=== PATIENT | female | born 1975 | race Caucasian/White ===

== ENCOUNTER → 2019-05-17 | Outpatient (CLI) | payer OTHER ==
--- NOTE | 2019-05-18 14:21 | REP ---
RIGHT ANKLE COMPLETE: 05/17/2019. CLINICAL HISTORY: Right ankle injury posteriorly. FINDINGS: Four views are provided, no prior study. Plantar calcaneal spur and a small calcification or ossification of the distal Achilles without swelling. Subtalar joints intact. Talonavicular and calcaneocuboid joints are normal. The mortise joint is symmetric and preserved. There is no visible or displaced fracture of the distal tibia or fibula. There is some soft tissue swelling about the ankle, but no acute fracture or avulsion. IMPRESSION: 1. Swelling about the ankle without fracture, avulsion, disruption of the mortise joint or other acute finding. 2. Achilles insertional calcification and plantar calcaneal spur. Electronically Signed by Benji Fountain MD 05/20/2019 08:03 A
== END ==
LOC: M WUC 18:55
PROVIDERS: ATTEND Physician Assistant
DX: M25.471 Effusion, right ankle (principal); M77.31 Calcaneal spur, right foot; M25.571 Pain in right ankle and joints of right foot

== ENCOUNTER 2022-10-01 19:41 | Emergency (ER) | payer OTHER ==
[~2022-10-01] VITALS: Ht 149.9 cm; Wt 75.0 kg
[2022-10-01 21:24] LABS: BASO # 0.1 10^3/uL (0.0-0.2); BASO % 0.9 % (0.0-1.0); EOS # 0.2 10^3/uL (0.0-0.5); EOS % 1.9 % (0.0-3.0); HEMATOCRIT 49.2 % (36.0-47.0); HEMOGLOBIN 16.2 g/dl (12.0-15.5); LYMPH # 3.5 10^3/uL (1.5-5.0); LYMPH % 32.6 % (24.0-44.0); MEAN CORPUSCULAR HEMOGLOBIN 29.6 pg (27.0-33.0); MEAN CORPUSCULAR HGB CONC 32.9 g/dl (32.0-36.5); MEAN CORPUSCULAR VOLUME 89.8 fl (80.0-96.0); MONO # 0.5 10^3/uL (0.0-0.8); MONO % 4.9 % (2.0-8.0); NEUTROPHILS # 6.3 10^3/uL (1.5-8.5); PLATELET COUNT, AUTOMATED 395 10^3/uL (150-450); RED BLOOD COUNT 5.48 10^6/uL (4.00-5.40); WHITE BLOOD COUNT 10.7 10^3/uL (4.0-10.0)
[2022-10-01 21:47] LABS: BLOOD UREA NITROGEN 8 MG/DL (9-23); CALCIUM LEVEL 9.6 MG/DL (8.5-10.1); CARBON DIOXIDE LEVEL 25 MMOL/L (20-31); CHLORIDE LEVEL 102 MMOL/L (98-107); CREATININE FOR GFR 0.52 MG/DL (0.55-1.30); GLOMERULAR FILTRATION RATE > 60.0 (>58); GLUCOSE, FASTING 289 MG/DL (60-100); POTASSIUM SERUM 4.2 MMOL/L (3.5-5.1); SODIUM LEVEL 137 MMOL/L (136-145)
[2022-10-02 00:50] VITALS: BP 131/83
== END 2022-10-02 01:44 | disposition left against medical advice (07) ==
LOC: M ED 19:41
DX: Z53.21 Procedure and treatment not carried out due to patient leaving prior to being seen by health care provider (principal)

== ENCOUNTER 2022-10-08 20:31 | Inpatient (IN) | payer OTHER ==
[~2022-10-08] VITALS: Ht 149.9 cm; Wt 75.5 kg
[2022-10-08] MEDS ORDERED: FAMOTIDINE 20MG/2ML VIAL IVP ONE (20:50)
[2022-10-08] MEDS ORDERED: ACETAMINOPHEN TAB 650MG DOSE (2X325MG) PO ONE (21:05)
[2022-10-08 21:23] LABS: BASO # 0.1 10^3/uL (0.0-0.2); BASO % 0.7 % (0.0-1.0); EOS # 0.1 10^3/uL (0.0-0.5); EOS % 0.6 % (0.0-3.0); HEMATOCRIT 41.9 % (36.0-47.0); HEMOGLOBIN 14.1 g/dl (12.0-15.5); LYMPH # 3.1 10^3/uL (1.5-5.0); LYMPH % 19.7 % (24.0-44.0); MEAN CORPUSCULAR HEMOGLOBIN 29.7 pg (27.0-33.0); MEAN CORPUSCULAR HGB CONC 33.7 g/dl (32.0-36.5); MEAN CORPUSCULAR VOLUME 88.2 fl (80.0-96.0); MONO # 0.7 10^3/uL (0.0-0.8); MONO % 4.3 % (2.0-8.0); NEUTROPHILS # 11.5 10^3/uL (1.5-8.5); NEUTROPHILS % 73.2 % (36.0-66.0); PLATELET COUNT, AUTOMATED 541 10^3/uL (150-450); RED BLOOD COUNT 4.75 10^6/uL (4.00-5.40); WHITE BLOOD COUNT 15.7 10^3/uL (4.0-10.0)
[2022-10-08] MEDS ORDERED: DOXY100C3 PO (21:28)
[2022-10-08] MEDS ORDERED: METF-881 PO (21:28)
[2022-10-08] MEDS ORDERED: HYDR-3713 PO (21:28)
[2022-10-08 21:40] LABS: CK-MB VALUE MASS < 1.0 NG/ML (<3.6)
[2022-10-08 21:41] LABS: ALBUMIN 3.2 G/DL (3.2-5.2); ALKALINE PHOSPHATASE 157 U/L (46-116); ALT/SGPT 34 U/L (7.0-40); AST/SGOT 32 U/L (<34); BILIRUBIN,DIRECT 0.2 MG/DL (<0.4); BILIRUBIN,TOTAL 0.6 MG/DL (0.3-1.2); BLOOD UREA NITROGEN 17 MG/DL (9-23); CALCIUM LEVEL 9.2 MG/DL (8.5-10.1); CARBON DIOXIDE LEVEL 15 MMOL/L (20-31); CHLORIDE LEVEL 100 MMOL/L (98-107); CPK CREATINE PHOSPHOKINASE 30 U/L (34-145); GLOMERULAR FILTRATION RATE > 60.0 (>58); GLUCOSE, FASTING 330 MG/DL (60-100); MB/CK RELATIVE INDEX 3.33 (< OR =4); POTASSIUM SERUM 3.4 MMOL/L (3.5-5.1); SODIUM LEVEL 135 MMOL/L (136-145); TOTAL PROTEIN 6.7 G/DL (5.7-8.2)
[2022-10-08] MEDS ORDERED: LORazepam 0.5 MG TAB PO ONE (22:05)
[2022-10-08 22:24] LABS: VENOUS BASE EXCESS -9.5 (-2.0-2.0); VENOUS HCO3 16.3 MEQ/L (23.0-27.0); VENOUS O2 SATURATION 79.5 % (60.0-80.0); VENOUS PARTIAL PRESSURE CO2 35.7 mmHg (38.0-50.0); VENOUS PARTIAL PRESSURE O2 48.7 mmHg (30.0-50.0); VENOUS PH 7.278 UNITS (7.330-7.430); VENOUS STANDARD HCO3 16.6 MEQ/L; VENOUS TOTAL CO2 17.4 MEQ/L (24.0-28.0)
[2022-10-08 22:57] LABS: CK-MB VALUE MASS < 1.0 NG/ML (<3.6)
[2022-10-08 22:59] LABS: CPK CREATINE PHOSPHOKINASE 28 U/L (34-145); MB/CK RELATIVE INDEX 3.57 (< OR =4)
[2022-10-08] MEDS ORDERED: PIPERACILLIN/TAZOBACTAM SOD 4.5 GM in D5W MINI-BAG PLUS 50 ML IV ONE (23:35)
[2022-10-08] MEDS ORDERED: NS 2,250 ML in IV 1 EA IV ONE (23:35)
[2022-10-09] VITALS (8 sets, daily range): BP systolic 109–126; BP diastolic 63–98
[2022-10-09] MEDS ORDERED: DOXY100T2 PO (00:19)
[2022-10-09] MEDS ORDERED: HYDR-4571 PO (00:19)
[2022-10-09] MEDS ORDERED: METF-838 PO (00:19)
[2022-10-09] MEDS ORDERED: ALEV220T22 PO (00:20)
[2022-10-09] MEDS ORDERED: HOME MED LIST COMPLETE! XX SCH (00:30)
[2022-10-09 00:48] LABS: RSV AMPLIFICATION NEGATIVE (NEGATIVE)
[2022-10-09 01:36] LABS: BLOOD UREA NITROGEN 16 MG/DL (9-23); CALCIUM LEVEL 8.2 MG/DL (8.5-10.1); CARBON DIOXIDE LEVEL 18 MMOL/L (20-31); CHLORIDE LEVEL 103 MMOL/L (98-107); CREATININE FOR GFR 0.54 MG/DL (0.55-1.30); GLOMERULAR FILTRATION RATE > 60.0 (>58); GLUCOSE, FASTING 397 MG/DL (60-100); POTASSIUM SERUM 4.5 MMOL/L (3.5-5.1); SODIUM LEVEL 135 MMOL/L (136-145)
[2022-10-09] MEDS ORDERED: HumuLIN R (REGULAR) INSULIN (NovoLIN R) **100U/ML** PER UNIT IV ONE (01:40)
[2022-10-09] MEDS ORDERED: VANCOMYCIN HCL IV SCH (02:10)
[2022-10-09] MEDS ORDERED: INSULIN REGULAR IN 0.9 % NACL 100 UNIT in IV 1 EA IV SCH ×2 (02:10)
[2022-10-09] MEDS ORDERED: MATE ADAPTER IV SCH (02:10)
[2022-10-09] MEDS ORDERED: NS IV SCH (02:10)
[2022-10-09] MEDS ORDERED: VANCOMYCIN HCL 750 MG, VIAL MATE ADAPTER 1 EACH in D5W 250 ML IV ONE ×2 (03:00→04:00)
[2022-10-09] MEDS: NS 1,000 ML IV SCH ×2 (03:20→11:01)
[2022-10-09] MEDS: INSULIN IV RATE CHANGE DOCUMENTATION ML/HR XX SCH ×2 (04:21→05:59)
[2022-10-09 05:38] LABS: BLOOD UREA NITROGEN 12 MG/DL (9-23); CALCIUM LEVEL 8.1 MG/DL (8.5-10.1); CARBON DIOXIDE LEVEL 18 MMOL/L (20-31); CHLORIDE LEVEL 108 MMOL/L (98-107); GLOMERULAR FILTRATION RATE > 60.0 (>58); GLUCOSE, FASTING 221 MG/DL (60-100); PHOSPHORUS LEVEL 2.4 MG/DL (2.5-4.9); POTASSIUM SERUM 4.1 MMOL/L (3.5-5.1); SODIUM LEVEL 139 MMOL/L (136-145)
[2022-10-09] MEDS: PIPERACILLIN/TAZOBACTAM SOD 3.375 GM in D5W MINI-BAG PLUS 50 ML IV SCH ×4 (05:54→23:31)
[2022-10-09] MEDS ORDERED: GLUCOSE 4GM CHEW TABLET PO PRN (06:15)
[2022-10-09] MEDS ORDERED: GLUCAGON INJ 1MG VIAL SC PRN (06:15)
[2022-10-09] MEDS ORDERED: LEVEMIR (INSULIN DETEMIR) 1 UNITS/0.01ML SC SCH (06:15)
[2022-10-09] MEDS ORDERED: DEXTROSE 50% 50ML SYRINGE IV PRN (06:15)
[2022-10-09] MEDS ORDERED: NS 500 ML IV ONE (06:35)
[2022-10-09 07:44] LABS: LIPASE 29 U/L (12-53)
[2022-10-09 07:46] LABS: AMYLASE 25 U/L (30-118); BILIRUBIN,DIRECT 0.2 MG/DL (<0.4)
[2022-10-09 07:48] LABS: ALBUMIN 2.7 G/DL (3.2-5.2); ALKALINE PHOSPHATASE 130 U/L (46-116); ALT/SGPT 31 U/L (7.0-40); AST/SGOT 26 U/L (<34); BILIRUBIN,TOTAL 0.5 MG/DL (0.3-1.2); TOTAL PROTEIN 5.8 G/DL (5.7-8.2)
[2022-10-09] MEDS: INSULIN LISPRO (NovoLOG) PER UNIT SC SCH ×3 (08:26→18:18)
[2022-10-09] MEDS: diphenhydrAMINE 25MG CAP PO SCH ×2 (09:33→21:24)
[2022-10-09] MEDS: FAMOTIDINE 20MG/2ML VIAL IVP SCH ×2 (09:34→21:24)
[2022-10-09] MEDS: ENOXAPARIN 40MG/0.4ML SYRINGE (J1650 PER 10MG) SC SCH (09:34)
[2022-10-09 10:46] LABS: BLOOD UREA NITROGEN 11 MG/DL (9-23); CALCIUM LEVEL 8.4 MG/DL (8.5-10.1); CARBON DIOXIDE LEVEL 20 MMOL/L (20-31); CHLORIDE LEVEL 108 MMOL/L (98-107); CREATININE FOR GFR 0.49 MG/DL (0.55-1.30); GLOMERULAR FILTRATION RATE > 60.0 (>58); GLUCOSE, FASTING 357 MG/DL (60-100); PHOSPHORUS LEVEL 2.3 MG/DL (2.5-4.9); POTASSIUM SERUM 4.5 MMOL/L (3.5-5.1); SODIUM LEVEL 138 MMOL/L (136-145)
[2022-10-09] MEDS: VANCOMYCIN HCL 1,000 MG, VIAL MATE ADAPTER 1 EACH in D5W 250 ML IV SCH ×2 (11:01→18:46)
[2022-10-09 14:07] LABS: BASO % 0.1 % (0.0-1.0); HEMATOCRIT 35.7 % (36.0-47.0); LYMPH # 2.4 10^3/uL (1.5-5.0); MEAN CORPUSCULAR HGB CONC 33.3 g/dl (32.0-36.5); MEAN CORPUSCULAR VOLUME 89.9 fl (80.0-96.0); MONO # 0.8 10^3/uL (0.0-0.8); MONO % 4.1 % (2.0-8.0); NEUTROPHILS # 15.3 10^3/uL (1.5-8.5); NEUTROPHILS % 81.9 % (36.0-66.0); RED BLOOD COUNT 3.97 10^6/uL (4.00-5.40); WHITE BLOOD COUNT 18.7 10^3/uL (4.0-10.0)
[2022-10-09 14:15] LABS: HEMOGLOBIN 11.9 g/dl (12.0-15.5)
[2022-10-09 14:16] LABS: PLATELET COUNT, AUTOMATED 412 10^3/uL (150-450)
[2022-10-09 14:24] LABS: ERYTHROCYTE SEDIMENTATION RATE 54 mm/hr (0-20)
[2022-10-09 15:35] LABS: HEMOGLOBIN A1c 12.4 % (4.0-6.0)
[2022-10-09] MEDS ORDERED: INSULIN LISPRO (NovoLOG) PER UNIT SC SCH (21:00)
[2022-10-10] MEDS: VANCOMYCIN HCL 1,000 MG, VIAL MATE ADAPTER 1 EACH in D5W 250 ML IV SCH (03:45)
[2022-10-10 03:47] VITALS: BP 116/73
[2022-10-10] MEDS: PIPERACILLIN/TAZOBACTAM SOD 3.375 GM in D5W MINI-BAG PLUS 50 ML IV SCH ×2 (06:32→12:28)
[2022-10-10 08:00] VITALS: BP 126/76
[2022-10-10] MEDS ORDERED: LEVEMIR (INSULIN DETEMIR) 1 UNITS/0.01ML SC SCH (09:00)
[2022-10-10] MEDS: INSULIN LISPRO (NovoLOG) PER UNIT SC SCH ×2 (09:07→13:34)
[2022-10-10] MEDS: ENOXAPARIN 40MG/0.4ML SYRINGE (J1650 PER 10MG) SC SCH (09:08)
[2022-10-10] MEDS ORDERED: CEPH500C PO (09:55)
[2022-10-10] MEDS ORDERED: BLOOKIT21 XX (09:55)
[2022-10-10] MEDS ORDERED: LEVE1INJ5 SC (09:55)
[2022-10-10] MEDS ORDERED: LANC30MI XX (09:55)
[2022-10-10] MEDS ORDERED: GLUC1TES2 XX (09:55)
[2022-10-10] MEDS ORDERED: ALCOPAD25 TOP (09:55)
[2022-10-10] MEDS ORDERED: INSU100I16 SQ (09:55)
[2022-10-10] MEDS ORDERED: PEN1MIS22 SC (09:55)
[2022-10-10 10:11] LABS: BASO # 0.1 10^3/uL (0.0-0.2); BASO % 0.7 % (0.0-1.0); EOS # 0.3 10^3/uL (0.0-0.5); EOS % 2.1 % (0.0-3.0); HEMATOCRIT 36.7 % (36.0-47.0); LYMPH # 3.6 10^3/uL (1.5-5.0); LYMPH % 27.7 % (24.0-44.0); MEAN CORPUSCULAR HEMOGLOBIN 29.9 pg (27.0-33.0); MEAN CORPUSCULAR HGB CONC 32.7 g/dl (32.0-36.5); MEAN CORPUSCULAR VOLUME 91.3 fl (80.0-96.0); MONO # 0.7 10^3/uL (0.0-0.8); MONO % 5.5 % (2.0-8.0); NEUTROPHILS # 8.2 10^3/uL (1.5-8.5); NEUTROPHILS % 63.1 % (36.0-66.0); PLATELET COUNT, AUTOMATED 388 10^3/uL (150-450); RED BLOOD COUNT 4.02 10^6/uL (4.00-5.40)
[2022-10-10 10:20] LABS: ERYTHROCYTE SEDIMENTATION RATE 33 mm/hr (0-20)
[2022-10-10 10:35] LABS: MAGNESIUM LEVEL 1.7 MG/DL (1.8-2.4)
[2022-10-10 10:39] LABS: ALBUMIN 2.7 G/DL (3.2-5.2); ALKALINE PHOSPHATASE 109 U/L (46-116); ALT/SGPT 28 U/L (7.0-40); AST/SGOT 27 U/L (<34); BILIRUBIN,TOTAL 0.6 MG/DL (0.3-1.2); BLOOD UREA NITROGEN 18 MG/DL (9-23); CALCIUM LEVEL 8.8 MG/DL (8.5-10.1); CARBON DIOXIDE LEVEL 22 MMOL/L (20-31); CHLORIDE LEVEL 108 MMOL/L (98-107); CREATININE FOR GFR 0.95 MG/DL (0.55-1.30); GLOMERULAR FILTRATION RATE > 60.0 (>58); GLUCOSE, FASTING 188 MG/DL (60-100); POTASSIUM SERUM 3.9 MMOL/L (3.5-5.1); SODIUM LEVEL 141 MMOL/L (136-145); TOTAL PROTEIN 5.5 G/DL (5.7-8.2)
[2022-10-10] MEDS ORDERED: MAGNESIUM OXIDE 400MG TAB (MAG-OX) PO ONE (12:00)
[2022-10-10 14:00] VITALS: BP 131/79
== END 2022-10-10 17:25 | disposition home or self-care (01) | DRG 720 ==
LOC: EDBD 20:31 → M ED 20:31 → EDUNIT# 20:31 → M ED INP 10-09 02:09 → ENRESERV 10-09 03:01 → M ICU 10-09 04:15 → M PED 10-10 05:25
PROVIDERS: ADMIT Internal Medicine; ATTEND Internal Medicine
DX: A41.9 Sepsis, unspecified organism (principal); E11.10 Type 2 diabetes mellitus with ketoacidosis without coma; E87.20 Acidosis, unspecified; L02.91 Cutaneous abscess, unspecified

== ENCOUNTER 2022-10-20 15:19 | Emergency (ER) | payer OTHER ==
[~2022-10-20] VITALS: Ht 149.9 cm; Wt 79.4 kg
[~2022-10-20 15:19] MED LIST: ALCOPAD25 TOP; ALEV220T22 PO; BLOOKIT21 XX; CEPH500C PO; DOXY100C3 PO; DOXY100T2 PO; GLUC1TES2 XX; HYDR-3713 PO; HYDR-4571 PO; INSU100I16 SQ; LANC30MI XX; LEVE1INJ5 SC; METF-838 PO; METF-881 PO; PEN1MIS22 SC
[2022-10-20 22:14] LABS: BASO # 0.1 10^3/uL (0.0-0.2); BASO % 0.9 % (0.0-1.0); EOS # 0.4 10^3/uL (0.0-0.5); EOS % 3.5 % (0.0-3.0); HEMATOCRIT 37.5 % (36.0-47.0); HEMOGLOBIN 12.2 g/dl (12.0-15.5); LYMPH # 3.3 10^3/uL (1.5-5.0); LYMPH % 32.8 % (24.0-44.0); MEAN CORPUSCULAR HEMOGLOBIN 29.5 pg (27.0-33.0); MEAN CORPUSCULAR HGB CONC 32.5 g/dl (32.0-36.5); MEAN CORPUSCULAR VOLUME 90.8 fl (80.0-96.0); MONO # 0.6 10^3/uL (0.0-0.8); MONO % 6.2 % (2.0-8.0); NEUTROPHILS # 5.6 10^3/uL (1.5-8.5); NEUTROPHILS % 56.3 % (36.0-66.0); PLATELET COUNT, AUTOMATED 449 10^3/uL (150-450); RED BLOOD COUNT 4.13 10^6/uL (4.00-5.40)
[2022-10-20 22:28] LABS: INR 0.98; PROTHROMBIN TIME 13.2 SECONDS (12.5-14.5)
[2022-10-20] MEDS ORDERED: NORCO, ANEXSIA 5/325MG TABLET (HYDROcodone/ACETAMINOPHEN) PO ONE (22:50)
[2022-10-20] MEDS ORDERED: HYDR-3713 PO (22:54)
[2022-10-20 23:07] VITALS: BP 132/78
== END 2022-10-20 23:10 | disposition home or self-care (01) ==
LOC: M ED 21:50
DX: S70.12XA Contusion of left thigh, initial encounter (principal); X58.XXXA Exposure to other specified factors, initial encounter; E11.9 Type 2 diabetes mellitus without complications; Z79.4 Long term (current) use of insulin; Z87.2 Personal history of diseases of the skin and subcutaneous tissue

== ENCOUNTER → 2022-11-12 | Outpatient (CLI) | payer OTHER | LOC: M RAD 14:48 | PROVIDERS: ATTEND Surgery | DX: I82.812 Embolism and thrombosis of superficial veins of left lower extremity (principal) ==

== ENCOUNTER → 2022-11-28 | Outpatient (REF) | payer OTHER ==
[2022-11-28 16:57] LABS: ALBUMIN 3.9 G/DL (3.2-5.2); ALKALINE PHOSPHATASE 95 U/L (46-116); ALT/SGPT 30 U/L (7.0-40); AST/SGOT 32 U/L (<34); BLOOD UREA NITROGEN 17 MG/DL (9-23); CARBON DIOXIDE LEVEL 27 MMOL/L (20-31); CHLORIDE LEVEL 108 MMOL/L (98-107); CHOLESTEROL LEVEL 207 MG/DL (<200); CHOLESTEROL RISK RATIO 5.34 (<5); CREATININE FOR GFR 0.95 MG/DL (0.55-1.30); GLOMERULAR FILTRATION RATE > 60.0 (>58); GLUCOSE, FASTING 109 MG/DL (60-100); HDL CHOLESTEROL 38.7 MG/DL (>40); LDL CHOLESTEROL 139.1 MG/DL (<100); NON-HDL-C 168 MG/DL; POTASSIUM SERUM 4.4 MMOL/L (3.5-5.1); SODIUM LEVEL 142 MMOL/L (136-145); THYROID STIMULATING HORMONE 1.345 uIU/ML (0.55-4.78); TOTAL PROTEIN 7.1 G/DL (5.7-8.2); TRIGLYCERIDES LEVEL 146 MG/DL (<150)
== END ==
LOC: M LAB REF 16:06
PROVIDERS: ATTEND Pediatrics
DX: E11.65 Type 2 diabetes mellitus with hyperglycemia (principal); E66.9 Obesity, unspecified

== ENCOUNTER → 2022-12-03 | Outpatient (CLI) | payer OTHER ==
[~2022-12-03] MED LIST changes: +INSU100I6 SC; -LEVE1INJ5 SC
== END ==
LOC: M WHC 14:08
PROVIDERS: ATTEND Pediatrics
DX: Z12.31 Encounter for screening mammogram for malignant neoplasm of breast (principal)

== ENCOUNTER 2023-02-04 07:49 | Day surgery (SDC) | payer OTHER ==
[~2023-02-04] VITALS: Ht 149.9 cm; Wt 73.5 kg
[~2023-02-04 07:49] MED LIST changes: +BASA100I SC; +FARX1TAB3 PO; +LOSA25TA13 PO; +NS 1,000 ML IV ONE
[2023-02-04] MEDS ORDERED: fentaNYL 100 MCG/2 ML INJECTION As Ordered ONE (08:55)
[2023-02-04] MEDS ORDERED: LIDOCAINE 2% MDV 20ML VIAL As Ordered ONE (08:55)
[2023-02-04] MEDS ORDERED: propofoL 200 MG/20 ML VIAL As Ordered ONE (08:55)
[2023-02-04 09:49] VITALS: BP 169/98
== END 2023-02-04 09:52 | disposition home or self-care (01) ==
LOC: M OPP 07:49
PROVIDERS: ATTEND Surgery
DX: Z12.11 Encounter for screening for malignant neoplasm of colon (principal); I10 Essential (primary) hypertension; E11.9 Type 2 diabetes mellitus without complications; E66.01 Morbid (severe) obesity due to excess calories; F41.9 Anxiety disorder, unspecified; F32.A Depression, unspecified; G43.909 Migraine, unspecified, not intractable, without status migrainosus; Z88.8 Allergy status to other drugs, medicaments and biological substances; Z79.4 Long term (current) use of insulin; Z79.84 Long term (current) use of oral hypoglycemic drugs; Z79.899 Other long term (current) drug therapy
CPT/HCPCS: 45378; J3010

== ENCOUNTER → 2023-05-29 | Outpatient (CLI) | payer OTHER ==
[~2023-05-29] MED LIST changes: -NS 1,000 ML IV ONE
[2023-05-29 17:13] LABS: HEMATOCRIT 43.8 % (36.0-47.0); HEMOGLOBIN 14.4 g/dl (12.0-15.5); MEAN CORPUSCULAR HEMOGLOBIN 29.6 pg (27.0-33.0); MEAN CORPUSCULAR HGB CONC 32.9 g/dl (32.0-36.5); MEAN CORPUSCULAR VOLUME 90.1 fl (80.0-96.0); PLATELET COUNT, AUTOMATED 388 10^3/uL (150-450); RED BLOOD COUNT 4.86 10^6/uL (4.00-5.40); WHITE BLOOD COUNT 10.1 10^3/uL (4.0-10.0)
[2023-05-29 17:17] LABS: ALKALINE PHOSPHATASE 114 U/L (46-116); ALT/SGPT 22 U/L (7.0-40); AST/SGOT 17 U/L (<34); BILIRUBIN,TOTAL 1.7 MG/DL (0.3-1.2); BLOOD UREA NITROGEN 16 MG/DL (9-23); CARBON DIOXIDE LEVEL 24 MMOL/L (20-31); CHLORIDE LEVEL 106 MMOL/L (98-107); CHOLESTEROL LEVEL 134 MG/DL (<200); CHOLESTEROL RISK RATIO 3.25 (<5); CREATININE FOR GFR 0.98 MG/DL (0.55-1.30); GLOMERULAR FILTRATION RATE > 60.0 (>58); GLUCOSE, FASTING 82 MG/DL (60-100); HDL CHOLESTEROL 41.2 MG/DL (>40); NON-HDL-C 92.8 MG/DL; POTASSIUM SERUM 4.2 MMOL/L (3.5-5.1); SODIUM LEVEL 142 MMOL/L (136-145); TOTAL PROTEIN 7.4 G/DL (5.7-8.2); TRIGLYCERIDES LEVEL 89 MG/DL (<150)
[2023-05-29 17:20] LABS: THYROID STIMULATING HORMONE 2.274 uIU/ML (0.55-4.78)
[2023-05-29 17:34] LABS: HEMOGLOBIN A1c 5.7 % (4.0-6.0)
== END ==
LOC: M RAD 14:20
PROVIDERS: ATTEND Pediatrics
DX: E11.9 Type 2 diabetes mellitus without complications (principal); R10.31 Right lower quadrant pain

== ENCOUNTER → 2023-09-01 | Outpatient (REF) | payer OTHER | LOC: M LAB REF 18:12 | PROVIDERS: ATTEND Pediatrics | DX: J02.9 Acute pharyngitis, unspecified (principal); R09.81 Nasal congestion ==

== ENCOUNTER → 2023-09-14 | Outpatient (REF) | payer OTHER ==
[2023-09-14 17:43] LABS: CHOLESTEROL RISK RATIO 3.54 (<5); HDL CHOLESTEROL 41.8 MG/DL (>40); LDL CHOLESTEROL 83.8 MG/DL (<100); NON-HDL-C 106.2 MG/DL
== END ==
LOC: M LAB REF 16:32
PROVIDERS: ATTEND Pediatrics
DX: E78.5 Hyperlipidemia, unspecified (principal)

== ENCOUNTER 2023-10-16 23:07 | Observation (INO) | payer OTHER ==
[~2023-10-16] VITALS: Ht 149.9 cm; Wt 71.9 kg
[2023-10-17 00:11] LABS: INR 1.03; PROTHROMBIN TIME 13.2 SECONDS (12.5-14.5)
[2023-10-17 00:32] LABS: BASO # 0.1 10^3/uL (0.0-0.2); BASO % 0.9 % (0.0-1.0); EOS # 0.2 10^3/uL (0.0-0.5); EOS % 2.2 % (0.0-3.0); HEMATOCRIT 42.8 % (36.0-47.0); HEMOGLOBIN 14.3 g/dl (12.0-15.5); LYMPH % 35.1 % (24.0-44.0); MEAN CORPUSCULAR HEMOGLOBIN 30.2 pg (27.0-33.0); MEAN CORPUSCULAR HGB CONC 33.4 g/dl (32.0-36.5); MEAN CORPUSCULAR VOLUME 90.5 fl (80.0-96.0); MONO # 0.5 10^3/uL (0.0-0.8); MONO % 6.2 % (2.0-8.0); NEUTROPHILS # 4.6 10^3/uL (1.5-8.5); NEUTROPHILS % 54.5 % (36.0-66.0); PLATELET COUNT, AUTOMATED 353 10^3/uL (150-450); RED BLOOD COUNT 4.73 10^6/uL (4.00-5.40); WHITE BLOOD COUNT 8.5 10^3/uL (4.0-10.0)
[2023-10-17 00:40] LABS: LIPASE 48 U/L (12-53)
[2023-10-17 00:42] LABS: ALBUMIN 3.8 G/DL (3.2-5.2); ALKALINE PHOSPHATASE 115 U/L (46-116); ALT/SGPT 20 U/L (7.0-40); AST/SGOT 16 U/L (<34); BILIRUBIN,DIRECT 0.5 MG/DL (<0.4); BILIRUBIN,TOTAL 1.3 MG/DL (0.3-1.2); BLOOD UREA NITROGEN 18 MG/DL (9-23); CALCIUM LEVEL 9.1 MG/DL (8.5-10.1); CARBON DIOXIDE LEVEL 28 MMOL/L (20-31); CHLORIDE LEVEL 106 MMOL/L (98-107); CK-MB VALUE MASS < 1.0 NG/ML (<3.6); CPK CREATINE PHOSPHOKINASE 44 U/L (34-145); CREATININE FOR GFR 0.85 MG/DL (0.55-1.30); GLOMERULAR FILTRATION RATE > 60.0 (>58); GLUCOSE, FASTING 112 MG/DL (60-100); MB/CK RELATIVE INDEX 2.27 (< OR =4); POTASSIUM SERUM 3.7 MMOL/L (3.5-5.1); SODIUM LEVEL 139 MMOL/L (136-145); TOTAL PROTEIN 6.9 G/DL (5.7-8.2)
[2023-10-17] MEDS ORDERED: ISOVUE-370 76% 100ML VIAL As Ordered ONE (02:41)
[2023-10-17] MEDS ORDERED: NS 1,000 ML IV ONE (06:10)
[2023-10-17] MEDS ORDERED: DULA3PEN SC (07:26)
[2023-10-17] MEDS ORDERED: ATOR40TA75 PO (07:26)
[2023-10-17] MEDS ORDERED: MED REC IN PROGRESS XX SCH (08:25)
[2023-10-17] MEDS ORDERED: LOSA50TA28 PO (08:33)
[2023-10-17] MEDS ORDERED: HOME MED LIST COMPLETE! XX SCH (08:40)
[2023-10-17] MEDS ORDERED: ASPIRIN 325 MG TAB PO ONE (08:45)
[2023-10-17] MEDS ORDERED: ACETAMINOPHEN TAB 650MG DOSE (2X325MG) PO PRN (09:15)
[2023-10-17] MEDS ORDERED: MOM 30ML SUSPENSION UDC PO PRN (09:15)
[2023-10-17] MEDS ORDERED: GLUCAGON INJ 1MG VIAL SC PRN (09:25)
[2023-10-17] MEDS ORDERED: GLUCOSE 4GM CHEW TABLET PO PRN (09:25)
[2023-10-17] MEDS ORDERED: DEXTROSE 50% 50ML SYRINGE IV PRN (09:25)
[2023-10-17] MEDS: RIVAROXABAN 10MG TAB (XARELTO) PO SCH (11:22)
[2023-10-17] MEDS: DOCUSATE SODIUM 100MG CAPSULE PO SCH ×2 (11:22→20:32)
[2023-10-17] MEDS: ATORVASTATIN 20 MG TAB PO SCH (11:22)
[2023-10-17 11:42] LABS: CHOLESTEROL RISK RATIO 3.31 (<5); HDL CHOLESTEROL 38.6 MG/DL (>40); INR 1.04; LDL CHOLESTEROL 72.8 MG/DL (<100); NON-HDL-C 89.4 MG/DL; PROTHROMBIN TIME 13.3 SECONDS (12.5-14.5)
[2023-10-17] MEDS: INSULIN LISPRO (NovoLOG) PER UNIT SC SCH ×2 (13:02→16:37)
[2023-10-17 13:20] VITALS: BP 152/91; TEMP 97.9; O2SAT 98
[2023-10-17] MEDS ORDERED: INSULIN LISPRO (NovoLOG) PER UNIT SC SCH (21:00)
[2023-10-17 21:30] VITALS: BP 113/76; TEMP 97.5; O2SAT 96
[2023-10-18 01:30] VITALS: BP 124/82; TEMP 97.5; O2SAT 98
[2023-10-18 05:39] VITALS: BP 127/79; TEMP 97.3; O2SAT 99
[2023-10-18 06:19] LABS: HEMATOCRIT 39.7 % (36.0-47.0); HEMOGLOBIN 13.1 g/dl (12.0-15.5); MEAN CORPUSCULAR HEMOGLOBIN 30.1 pg (27.0-33.0); MEAN CORPUSCULAR VOLUME 91.3 fl (80.0-96.0); PLATELET COUNT, AUTOMATED 295 10^3/uL (150-450); RED BLOOD COUNT 4.35 10^6/uL (4.00-5.40); WHITE BLOOD COUNT 6.9 10^3/uL (4.0-10.0)
[2023-10-18 06:48] LABS: BLOOD UREA NITROGEN 14 MG/DL (9-23); CALCIUM LEVEL 8.5 MG/DL (8.5-10.1); CARBON DIOXIDE LEVEL 24 MMOL/L (20-31); CHLORIDE LEVEL 113 MMOL/L (98-107); GLOMERULAR FILTRATION RATE > 60.0 (>58); GLUCOSE, FASTING 95 MG/DL (60-100); POTASSIUM SERUM 4.2 MMOL/L (3.5-5.1); SODIUM LEVEL 143 MMOL/L (136-145)
[2023-10-18] MEDS: INSULIN LISPRO (NovoLOG) PER UNIT SC SCH (07:24)
[2023-10-18] MEDS: RIVAROXABAN 10MG TAB (XARELTO) PO SCH (08:52)
[2023-10-18] MEDS: ATORVASTATIN 20 MG TAB PO SCH (08:53)
[2023-10-18] MEDS: DOCUSATE SODIUM 100MG CAPSULE PO SCH (08:53)
[2023-10-18] MEDS ORDERED: ASPIRIN 81MG CHEW TABLET PO SCH (09:00)
[2023-10-18] MEDS ORDERED: ASPI81CH8 PO (11:17)
[2023-10-18] MEDS ORDERED: ACET-897 PO (11:17)
== END 2023-10-18 12:18 | disposition home or self-care (01) ==
LOC: M ED 23:07 → M ED INP 23:08 → M MSPAV 10-17 13:26
PROVIDERS: ADMIT Student in an Organized Health Care Education/Training Program; ATTEND Internal Medicine Nephrology
DX: G45.9 Transient cerebral ischemic attack, unspecified (principal); G43.909 Migraine, unspecified, not intractable, without status migrainosus; E11.9 Type 2 diabetes mellitus without complications; K76.0 Fatty (change of) liver, not elsewhere classified; I10 Essential (primary) hypertension; E78.5 Hyperlipidemia, unspecified; E66.9 Obesity, unspecified; Z88.8 Allergy status to other drugs, medicaments and biological substances; Z79.899 Other long term (current) drug therapy
CPT/HCPCS: 36415; 70450; 70496; 70498; 70551; 71046; 80048; 80061; 80076; 82550; 82553; 83036; 83690; 85025; 85027; 85610; 87635; 93005; 93306; 96374; 97161; 97530; 99285; Q9967

== ENCOUNTER → 2023-10-23 | Outpatient (REF) | payer OTHER ==
[~2023-10-23] MED LIST changes: +ACET-897 PO; +ASPI81CH8 PO; +ATOR40TA75 PO; +DULA3PEN SC; +LOSA50TA28 PO
== END ==
LOC: M LAB REF 16:41
PROVIDERS: ATTEND Pediatrics
DX: R20.2 Paresthesia of skin (principal)

== ENCOUNTER → 2024-01-08 | Outpatient (REF) | payer OTHER ==
[2024-01-08 12:41] LABS: HEMOGLOBIN A1c 5.8 % (4.0-6.0)
== END ==
LOC: M LAB REF 11:40
PROVIDERS: ATTEND Pediatrics
DX: E11.9 Type 2 diabetes mellitus without complications (principal)

== ENCOUNTER → 2024-03-09 | Outpatient (REF) | payer OTHER ==
[2024-03-09 18:40] LABS: MAU/CREAT RATIO 5.1 MCG/MG (0.0-30.0)
[2024-03-10 15:26] LABS: HEMOGLOBIN A1c 6.1 % (4.0-6.0)
[2024-03-10 15:49] LABS: ALKALINE PHOSPHATASE 137 U/L (46-116); ALT/SGPT 23 U/L (7.0-40); AST/SGOT 13 U/L (<34); BILIRUBIN,TOTAL 1.4 MG/DL (0.3-1.2); BLOOD UREA NITROGEN 18 MG/DL (9-23); CALCIUM LEVEL 9.9 MG/DL (8.5-10.1); CARBON DIOXIDE LEVEL 28 MMOL/L (20-31); CHLORIDE LEVEL 105 MMOL/L (98-107); CHOLESTEROL LEVEL 134 MG/DL (<200); GLOMERULAR FILTRATION RATE > 60.0 (>51); GLUCOSE, FASTING 89 MG/DL (60-100); HDL CHOLESTEROL 49.5 MG/DL (>40); LDL CHOLESTEROL 66.1 MG/DL (<100); NON-HDL-C 84.5 MG/DL; POTASSIUM SERUM 5.8 MMOL/L (3.5-5.1); SODIUM LEVEL 140 MMOL/L (136-145); TOTAL PROTEIN 7.5 G/DL (5.7-8.2); TRIGLYCERIDES LEVEL 92 MG/DL (<150)
[2024-03-10 15:52] LABS: THYROID STIMULATING HORMONE 2.449 uIU/ML (0.55-4.78)
== END ==
LOC: M LAB REF 16:21
PROVIDERS: ATTEND Pediatrics
DX: E11.9 Type 2 diabetes mellitus without complications (principal)

== ENCOUNTER → 2024-04-06 | Outpatient (CLI) | payer OTHER ==
[2024-04-06 14:42] LABS: RHEUMATOID FACTOR QUANT < 3.5 IU/ML (<14); THYROID STIMULATING HORMONE 1.784 uIU/ML (0.55-4.78)
[2024-04-06 14:43] LABS: FOLATE 21.5 NG/ML (>5.4)
[2024-04-06 14:44] LABS: VITAMIN B12 LEVEL 733 PG/ML (211-911)
[2024-04-07 06:57] LABS: T P ELECTROPHORESIS SO 6.9 g/dL (6.1-8.1)
[2024-04-09 02:57] LABS: COPPER PLASMA 132 mcg/dL (70-175)
[2024-04-11 08:23] LABS: ALBUMIN SPEP 3.9 g/dL (3.8-4.8); ALPHA-1-GLOBULINS SO 0.3 g/dL (0.2-0.3); ALPHA-2-GLOBULINS SO 0.8 g/dL (0.5-0.9); BETA 2 GLOBULIN 0.5 g/dL (0.2-0.5); BETA-GLOBULIN SO 0.4 g/dL (0.4-0.6)
== END ==
LOC: M LAB 12:49
PROVIDERS: ATTEND Psychiatry & Neurology Neurology
DX: R51.9 Headache, unspecified (principal); R20.0 Anesthesia of skin

== ENCOUNTER → 2024-04-07 | Outpatient (REF) | payer OTHER | LOC: M LAB REF 12:57 | PROVIDERS: ATTEND Psychiatry & Neurology Neurology | DX: R51.9 Headache, unspecified (principal) ==

== ENCOUNTER → 2024-05-06 | Outpatient (CLI) | payer OTHER | LOC: M PLAIMG 10:25 | PROVIDERS: ATTEND Pediatrics | DX: H70.13 Chronic mastoiditis, bilateral (principal) ==

== ENCOUNTER → 2024-08-17 | Outpatient (CLI) | payer OTHER | LOC: M WHC 12:57 | PROVIDERS: ATTEND Pediatrics | DX: Z12.31 Encounter for screening mammogram for malignant neoplasm of breast (principal); R92.323 Mammographic fibroglandular density, bilateral breasts ==

== ENCOUNTER → 2025-02-03 | Outpatient (REF) | payer OTHER ==
[2025-02-03 15:22] LABS: CREATININE, URINE 168.1 MG/DL
[2025-02-03 15:23] LABS: MAU/CREAT RATIO 3.5 MCG/MG (0.0-30.0)
[2025-02-03 18:47] LABS: BASO # 0.1 10^3/uL (0.0-0.2); BASO % 1.1 % (0.0-1.0); EOS # 0.2 10^3/uL (0.0-0.5); EOS % 1.7 % (0.0-3.0); HEMATOCRIT 46.7 % (36.0-47.0); HEMOGLOBIN 14.9 g/dl (12.0-15.5); LYMPH # 2.6 10^3/uL (1.5-5.0); LYMPH % 28.5 % (24.0-44.0); MEAN CORPUSCULAR HEMOGLOBIN 29.2 pg (27.0-33.0); MEAN CORPUSCULAR HGB CONC 31.9 g/dl (32.0-36.5); MEAN CORPUSCULAR VOLUME 91.4 fl (80.0-96.0); MONO # 0.5 10^3/uL (0.0-0.8); NEUTROPHILS # 5.8 10^3/uL (1.5-8.5); NEUTROPHILS % 63.3 % (36.0-66.0); PLATELET COUNT, AUTOMATED 443 10^3/uL (150-450); RED BLOOD COUNT 5.11 10^6/uL (4.00-5.40); WHITE BLOOD COUNT 9.1 10^3/uL (4.0-10.0)
[2025-02-03 18:53] LABS: ALBUMIN 3.8 G/DL (3.2-5.2); BILIRUBIN,TOTAL 1.2 MG/DL (0.3-1.2); CALCIUM LEVEL 9.2 MG/DL (8.5-10.1); CHOLESTEROL RISK RATIO 3.44 (<5); CREATININE FOR GFR 0.89 MG/DL (0.55-1.30); GLOMERULAR FILTRATION RATE 78.9 (>51); HDL CHOLESTEROL 43.8 MG/DL (>40); LDL CHOLESTEROL 83.2 MG/DL (<100); NON-HDL-C 107.2 MG/DL; POTASSIUM SERUM 4.4 MMOL/L (3.5-5.1); TOTAL PROTEIN 7.3 G/DL (5.7-8.2)
[2025-02-03 18:54] LABS: THYROID STIMULATING HORMONE 2.438 uIU/ML (0.55-4.78)
[2025-02-03 19:10] LABS: HEMOGLOBIN A1c 6.4 % (4.0-6.0)
== END ==
LOC: M LAB REF 14:35
PROVIDERS: ATTEND Pediatrics
DX: E11.69 Type 2 diabetes mellitus with other specified complication (principal)

== ENCOUNTER → 2025-02-21 | Outpatient (CLI) | payer OTHER | LOC: M RAD 14:15 | PROVIDERS: ATTEND Pediatrics | DX: R10.31 Right lower quadrant pain (principal) ==